=== PATIENT | female | born 1960 | race Caucasian/White ===

== ENCOUNTER → 2018-03-19 | Outpatient (CLI) | payer MEDICAID ==
[2018-03-19 10:35] LABS: ADD MAN DIFF? NO
[2018-03-19 10:46] LABS: BASOPHIL # 0.1 10^3/ul (0.0-0.1); BASOPHILS % 0.7 % (0.0-2.0); EOSINOPHILS # 0.1 10^3/ul (0.0-0.5); EOSINOPHILS % 1.9 % (0.0-7.0); HEMATOCRIT 41.6 % (37.0-47.0); LYMPHOCYTES # 3.1 10^3/ul (0.8-2.9); LYMPHOCYTES % 45.9 % (15.0-51.0); MEAN CORPUSCULAR HEMOGLOBIN 31.1 pg (29.0-33.0); MEAN CORPUSCULAR HGB CONC 33.7 g/dl (32.0-37.0); MEAN CORPUSCULAR VOLUME 92.4 fl (82.0-101.0); MEAN PLATELET VOLUME 9.6 fl (7.4-10.4); MONOCYTE # 0.4 10^3/ul (0.3-0.9); MONOCYTES % 6.3 % (0.0-11.0); NEUTROPHIL # 3.1 10^3/ul (1.6-7.5); NEUTROPHILS % 45.1 % (39.0-77.0); PLATELET COUNT 329 10^3/UL (140-415); RED CELL DISTRIBUTION WIDTH 13.2 % (11.5-14.5)
[2018-03-19 10:46] LABS: WHITE BLOOD COUNT 6.8 10^3/ul (4.8-10.8)
[2018-03-19 11:04] LABS: INR 0.92; PROTIME 12.4 Sec (11.9-14.9)
[2018-03-19 11:05] LABS: PARTIAL THROMBOPLASTIN TIME 28.1 Sec (25.0-35.0)
[2018-03-19 11:09] LABS: ALANINE AMINOTRANSFERASE 22 IU/L (13-69); ALBUMIN 4.4 g/dl (3.3-4.9); ALBUMIN/GLOBULIN RATIO 1.37; ALKALINE PHOSPHATASE 81 IU/L (42-121); ANION GAP 16 (8-16); ASPARTATE AMINO TRANSFERASE 24 IU/L (15-46); BILIRUBIN,INDIRECT 0.6 mg/dl (0-1.1); BILIRUBIN,TOTAL 0.6 mg/dl (0.2-1.3); BLOOD UREA NITROGEN 17 mg/dl (7-20); CALCIUM 9.5 mg/dl (8.4-10.2); CARBON DIOXIDE 28 mmol/L (21-31); CHLORIDE 106 mmol/L (97-110); CREATININE 0.74 mg/dl (0.44-1.00); GLUCOSE 125 mg/dl (70-220); POTASSIUM 4.8 mmol/L (3.5-5.1); SODIUM 145 mmol/L (135-144); TOTAL PROTEIN 7.6 g/dl (6.1-8.1)
== END | disposition home or self-care (01) ==
LOC: LAB 08:00
DX: C50.912 Malignant neoplasm of unspecified site of left female breast (principal)
CPT/HCPCS: 71046; 80053; 85025; 85610; 85730; 93005

== ENCOUNTER 2018-03-29 08:16 | Day surgery (SDC) | payer MEDICAID ==
[~2018-03-29 08:16] MED LIST: CEFAZOLIN 2 GM/50 ML (PMX) 50 ML IVPB; EPHEDrine SULFATE 50 MG/5 ML SYG; SOD CHLORIDE 0.9% 1,000 ML IV
[2018-03-29] MEDS ORDERED: MIDAZOLAM 1 MG/ML 2 ML INJ (13:26)
[2018-03-29] MEDS ORDERED: PROPOFOL 40 ML (13:26)
[2018-03-29] MEDS ORDERED: LIDOCAINE 2% (SDV) 5 ML INJ (13:27)
[2018-03-29] MEDS ORDERED: FENTAnyl 50 MCG/ML VIAL (13:27)
[2018-03-29] MEDS ORDERED: ONDANSETRON 4 MG INJ (13:27)
[2018-03-29] MEDS ORDERED: DEXAMETHASONE 4 MG/ML 1 ML INJ (13:28)
[2018-03-29] MEDS ORDERED: FAMOTIDINE 20 MG INJ (13:28)
[2018-03-29] MEDS ORDERED: ISOSULFAN BLUE 1% 5 ML INJ SC (14:53)
[2018-03-29] MEDS ORDERED: DIPHENHYDRAMINE 50 MG INJ IV (15:00)
[2018-03-29] MEDS ORDERED: morphine (1 MG/ML) 10ML SYRINGE IV (15:00)
[2018-03-29] MEDS ORDERED: OXYCODONE/ACETAMINOPHEN (5/325) TAB PO (15:00)
[2018-03-29] MEDS ORDERED: HYDROmorphONE 1 MG/5 ML IV SYRINGE IV (15:00)
[2018-03-29] MEDS: ISOSULFAN BLUE 1% 5 ML INJ SC (15:15)
[2018-03-29] MEDS ORDERED: ONDANSETRON 4 MG INJ IV (16:30)
[2018-03-29] MEDS ORDERED: morphine 2 MG INJ IV (16:30)
[2018-03-29] MEDS ORDERED: ACETAMINOPHEN 1000MG/100ML IV 100 ML IVPB (16:30)
[2018-03-29] MEDS ORDERED: hydrALAzine 20 MG INJ (16:47)
[2018-03-29] MEDS: FENTAnyl 50 MCG/ML VIAL IV ×2 (16:53→17:05)
[2018-03-29] MEDS: ONDANSETRON 4 MG INJ IV (16:53)
[2018-03-29] MEDS: MEPERIDINE 25 MG INJ IV (16:54)
[2018-03-29] MEDS: D5W-0.45 NACL + KCL 20 MEQ 1,000 ML IV (18:44)
[2018-03-30] MEDS: D5W-0.45 NACL + KCL 20 MEQ 1,000 ML IV ×2 (00:30→03:04)
== END 2018-03-30 13:55 | disposition home or self-care (01) ==
LOC: SDS 08:16 → REC 18:08 → SDS 08:16 → REC 17:03 → MS1 18:08 → SDS 03-30 13:55
DX: D05.12 Intraductal carcinoma in situ of left breast (principal); E03.9 Hypothyroidism, unspecified; E78.5 Hyperlipidemia, unspecified; E66.9 Obesity, unspecified; Z68.36 Body mass index [BMI] 36.0-36.9, adult
CPT/HCPCS: 19301; 88309; 88331

== ENCOUNTER 2018-04-20 07:22 | Day surgery (SDC) | payer MEDICAID ==
[~2018-04-20 07:22] MED LIST changes: -CEFAZOLIN 2 GM/50 ML (PMX) 50 ML IVPB; +DEXAMETHASONE 4 MG/ML 1 ML INJ; -EPHEDrine SULFATE 50 MG/5 ML SYG; +LIDOCAINE 2% (SDV) 5 ML INJ; +ONDANSETRON 4 MG INJ; -SOD CHLORIDE 0.9% 1,000 ML IV
[2018-04-20] MEDS: SOD CHLORIDE 0.9% 1,000 ML IV (08:20)
[2018-04-20 08:30] LABS: ADD MAN DIFF? NO
[2018-04-20 08:41] LABS: BASOPHIL # 0.1 10^3/ul (0.0-0.1); BASOPHILS % 1.2 % (0.0-2.0); EOSINOPHILS # 0.3 10^3/ul (0.0-0.5); EOSINOPHILS % 4.9 % (0.0-7.0); HEMATOCRIT 37.6 % (37.0-47.0); HEMOGLOBIN 12.5 g/dl (12.0-16.0); LYMPHOCYTES # 2.1 10^3/ul (0.8-2.9); LYMPHOCYTES % 31.8 % (15.0-51.0); MEAN CORPUSCULAR HEMOGLOBIN 30.8 pg (29.0-33.0); MEAN CORPUSCULAR HGB CONC 33.2 g/dl (32.0-37.0); MEAN CORPUSCULAR VOLUME 92.6 fl (82.0-101.0); MEAN PLATELET VOLUME 10.3 fl (7.4-10.4); MONOCYTE # 0.6 10^3/ul (0.3-0.9); MONOCYTES % 8.9 % (0.0-11.0); NEUTROPHIL # 3.4 10^3/ul (1.6-7.5); NEUTROPHILS % 52.7 % (39.0-77.0); PLATELET COUNT 393 10^3/UL (140-415); RED BLOOD COUNT 4.06 10^6/ul (4.20-5.40); RED CELL DISTRIBUTION WIDTH 13.4 % (11.5-14.5)
[2018-04-20 08:41] LABS: WHITE BLOOD COUNT 6.5 10^3/ul (4.8-10.8)
[2018-04-20 09:01] LABS: PARTIAL THROMBOPLASTIN TIME 28.3 Sec (25.0-35.0); PROTIME 12.2 Sec (11.9-14.9)
[2018-04-20 09:03] LABS: ALANINE AMINOTRANSFERASE 21 IU/L (13-69); ALBUMIN 4.1 g/dl (3.3-4.9); ALBUMIN/GLOBULIN RATIO 1.32; ALKALINE PHOSPHATASE 79 IU/L (42-121); ANION GAP 13 (8-16); ASPARTATE AMINO TRANSFERASE 25 IU/L (15-46); BILIRUBIN,INDIRECT 0.3 mg/dl (0-1.1); BILIRUBIN,TOTAL 0.3 mg/dl (0.2-1.3); BLOOD UREA NITROGEN 21 mg/dl (7-20); CALCIUM 9.4 mg/dl (8.4-10.2); CARBON DIOXIDE 29 mmol/L (21-31); CHLORIDE 106 mmol/L (97-110); CREATININE 0.68 mg/dl (0.44-1.00); GLUCOSE 121 mg/dl (70-220); POTASSIUM 4.4 mmol/L (3.5-5.1); SODIUM 144 mmol/L (135-144); TOTAL PROTEIN 7.2 g/dl (6.1-8.1)
[2018-04-20] MEDS ORDERED: CEFAZOLIN 2 GM/50 ML (PMX) 50 ML IVPB (09:30)
[2018-04-20] MEDS ORDERED: PROPOFOL 100 ML (09:38)
[2018-04-20] MEDS ORDERED: FENTAnyl 50 MCG/ML VIAL (09:40)
[2018-04-20] MEDS ORDERED: CEFAZOLIN 1 GM INJ (09:55)
[2018-04-20] MEDS: HYDROmorphONE 1 MG/5 ML IV SYRINGE IV ×3 (10:42→11:11)
[2018-04-20] MEDS ORDERED: HYDROmorphONE 1 MG/5 ML IV SYRINGE IV ×2 (10:46→11:00)
[2018-04-20] MEDS ORDERED: DIPHENHYDRAMINE 50 MG INJ IV (11:00)
[2018-04-20] MEDS ORDERED: EPHEDrine SULFATE 50 MG/5 ML SYG IV (11:00)
[2018-04-20] MEDS ORDERED: OXYCODONE/ACETAMINOPHEN (5/325) TAB PO ×2 (11:00)
[2018-04-20] MEDS ORDERED: HYDROCODONE/APAP (7.5/325) TAB PO (11:00)
[2018-04-20] MEDS ORDERED: FENTAnyl 50 MCG/ML VIAL IV ×3 (11:00)
[2018-04-20] MEDS ORDERED: METOCLOPRAMIDE 10 MG INJ IV (11:00)
[2018-04-20] MEDS ORDERED: hydrALAzine 20 MG INJ IV (11:00)
[2018-04-20] MEDS ORDERED: MEPERIDINE 25 MG INJ IV (11:00)
[2018-04-20] MEDS ORDERED: LABETALOL HCL 20MG INJ IV (11:00)
[2018-04-20] MEDS ORDERED: ONDANSETRON 4 MG INJ IV (11:00)
[2018-04-20] MEDS ORDERED: ALBUTEROL 0.083% (NEB) 2.5 MG/3 ML AMP HHN (11:00)
== END 2018-04-20 13:13 | disposition home or self-care (01) ==
LOC: SDS 07:22
DX: L76.32 Postprocedural hematoma of skin and subcutaneous tissue following other procedure (principal); Y83.8 Other surgical procedures as the cause of abnormal reaction of the patient, or of later complication, without mention of misadventure at the time of the procedure; Z85.3 Personal history of malignant neoplasm of breast
CPT/HCPCS: 10140; 80053; 85025; 85610; 85730